=== PATIENT | female | born 1950 | race Native Hawaiian/Other Pacific Islander ===

== ENCOUNTER 2016-04-17 10:33 | Outpatient (CLI) | payer OTHER, BC ==
[~2016-04-17 10:33] MED LIST: TESTOST CYP100 MG/ML IM
== END 2016-04-17 22:04 | disposition home or self-care (01) ==
LOC: RAD 10:33
DX: J01.00 Acute maxillary sinusitis, unspecified (principal); J40 Bronchitis, not specified as acute or chronic

== ENCOUNTER 2016-06-02 07:06 | Outpatient (CLI) | payer OTHER, BC | END 2016-06-02 19:18 | disposition home or self-care (01) | LOC: LABW 07:06 | PROVIDERS: Internal Medicine | DX: E78.1 Pure hyperglyceridemia (principal); E78.4 Other hyperlipidemia; E83.51 Hypocalcemia | CPT/HCPCS: 36415; 80061; 80076; 82306; 82310; 82533; 82670; 83001; 83002; 83970; 84402; 84403 ==

== ENCOUNTER 2016-12-03 07:35 | Outpatient (CLI) | payer OTHER, BC ==
[2016-12-03 08:45] LABS: PLATELET COUNT 310 K/uL (152-353)
[2016-12-03 09:52] LABS: SODIUM 136 mmol/L (136-145)
== END 2016-12-03 08:35 | disposition home or self-care (01) ==
LOC: LABW 07:35
PROVIDERS: Internal Medicine
DX: Z01.818 Encounter for other preprocedural examination (principal); M25.551 Pain in right hip; E78.00 Pure hypercholesterolemia, unspecified
CPT/HCPCS: 36415; 80053; 80061; 81000; 84443; 85027

== ENCOUNTER 2017-06-09 14:38 | Emergency (ER) | payer OTHER, BC ==
[~2017-06-09] VITALS: Ht 162.6 cm; Wt 81.6 kg
[2017-06-09 14:56] VITALS: TEMP 98.4
[2017-06-09 15:45] VITALS: BP 130/35
== END 2017-06-09 15:50 | disposition home or self-care (01) ==
LOC: ED 14:38
DX: R22.41 Localized swelling, mass and lump, right lower limb (principal); Z96.641 Presence of right artificial hip joint
CPT/HCPCS: 99283

== ENCOUNTER 2018-01-07 07:29 | Outpatient (CLI) | payer OTHER, BC | END 2018-01-07 19:16 | disposition home or self-care (01) | LOC: LABW 07:29 | DX: R53.83 Other fatigue (principal); E34.9 Endocrine disorder, unspecified | CPT/HCPCS: 36415; 82306; 82310; 82670; 83970; 84402; 84403 ==

== ENCOUNTER 2018-04-26 07:31 | Outpatient (CLI) | payer OTHER, BC ==
[2018-04-26 08:20] LABS: PLATELET COUNT 323 K/uL (152-353)
[2018-04-26 08:45] LABS: POTASSIUM 3.9 mmol/L (3.6-5.2)
== END 2018-04-26 19:23 | disposition home or self-care (01) ==
LOC: LABW 07:31
PROVIDERS: Internal Medicine
DX: Z00.00 Encounter for general adult medical examination without abnormal findings (principal); Z79.899 Other long term (current) drug therapy; E55.9 Vitamin D deficiency, unspecified
CPT/HCPCS: 36415; 80053; 80061; 82306; 83036; 84439; 84443; 85027; 86141

== ENCOUNTER 2018-04-27 10:34 | Outpatient (CLI) | payer OTHER, BC | END 2018-04-27 19:18 | disposition home or self-care (01) | LOC: LAB 10:34 | DX: Z00.00 Encounter for general adult medical examination without abnormal findings (principal); E78.5 Hyperlipidemia, unspecified; Z79.899 Other long term (current) drug therapy; E55.9 Vitamin D deficiency, unspecified | CPT/HCPCS: 81000 ==

== ENCOUNTER 2018-11-24 06:49 | Outpatient (CLI) | payer OTHER, BC | END 2018-11-24 20:03 | disposition home or self-care (01) | LOC: LABW 06:49 | DX: E34.8 Other specified endocrine disorders (principal) | CPT/HCPCS: 36415; 82670; 84402; 84403 ==

== ENCOUNTER 2020-09-21 07:59 | Outpatient (CLI) | payer OTHER, BC | END 2020-09-21 21:50 | disposition home or self-care (01) | LOC: LABW 07:59 | PROVIDERS: ATTEND Obstetrics & Gynecology Gynecology | DX: E78.00 Pure hypercholesterolemia, unspecified (principal); E34.8 Other specified endocrine disorders | CPT/HCPCS: 36415; 80061; 82642; 82670; 84402; 84403 ==

== ENCOUNTER 2020-09-21 11:31 | Outpatient (CLI) | payer OTHER, BC | END 2020-09-21 22:01 | disposition home or self-care (01) | LOC: US 11:31 | PROVIDERS: ATTEND Internal Medicine | DX: M79.605 Pain in left leg (principal) ==

== ENCOUNTER 2021-03-28 07:39 | Outpatient (CLI) | payer OTHER, BC ==
[2021-03-28 08:26] LABS: PLATELET COUNT 301 K/uL (152-353)
[2021-03-28 08:36] LABS: POTASSIUM 3.9 mmol/L (3.6-5.2)
== END 2021-03-28 18:50 | disposition home or self-care (01) ==
LOC: LABW 07:39
PROVIDERS: ATTEND Obstetrics & Gynecology Gynecology
DX: E34.9 Endocrine disorder, unspecified (principal); R53.83 Other fatigue; E78.00 Pure hypercholesterolemia, unspecified
CPT/HCPCS: 36415; 80053; 80061; 82642; 82670; 84402; 84403; 84436; 84439; 84443; 85027

== ENCOUNTER 2021-07-31 07:31 | Outpatient (CLI) | payer OTHER, BC | END 2021-07-31 19:13 | disposition home or self-care (01) | LOC: LABW 07:31 | PROVIDERS: ATTEND Obstetrics & Gynecology Gynecology | DX: E34.8 Other specified endocrine disorders (principal) | CPT/HCPCS: 36415; 82642; 82670; 84402; 84403 ==

== ENCOUNTER 2021-08-01 10:16 | Outpatient (CLI) | payer OTHER, BC | END 2021-08-01 21:17 | disposition home or self-care (01) | LOC: LAB 10:16 | PROVIDERS: ATTEND Obstetrics & Gynecology Gynecology | DX: E34.9 Endocrine disorder, unspecified (principal) | CPT/HCPCS: 81000 ==

== ENCOUNTER 2021-08-29 16:21 | Outpatient (CLI) | payer OTHER, BC | END 2021-08-29 19:19 | disposition home or self-care (01) | LOC: CT 16:21 | PROVIDERS: ATTEND Internal Medicine | DX: S39.012A Strain of muscle, fascia and tendon of lower back, initial encounter (principal); R31.9 Hematuria, unspecified; Y92.9 Unspecified place or not applicable ==